=== PATIENT | male | born 1975 | race Caucasian/White ===

== ENCOUNTER 2022-04-07 12:38 | Emergency (ER) | payer BC, SELFPAY ==
[2022-04-07] VITALS (9 sets, daily range): BP systolic 115–144; BP diastolic 67–98; PULSE 67–72; RESP 14–18; TEMP 37; O2SAT 95–98; BMI 33.5
--- NOTE | 2022-04-07 12:28 | ECG_ITS ---
APPROVED REPORT Exam: Resting ECG HR:74 bpm ECG Measurements Heart Rate 74 AXES FL 145 P 73 QRSd 96 QRS 88 QT 389 T 75 QTc [address] ELEVATION, PROBABLY EARLY REPOLARIZATION [ST ELEVATION WITH NORMALLY INFLECTED T-WAVE] BORDERLINE ECG UNCONFIRMED REPORT Electronically signed by : Fareed Brown MD 04/08/2022 21:10:36
--- NOTE | 2022-04-07 12:51 | HMH.EDGENADL ---
ED Disposition Clinical Impression: Muscle cramping Disposition: Home, Self-Care Condition on Discharge: Fair Instructions: Nocturnal Leg Cramps Additional Instructions: Follow-up with your primary care doctor in about 2 to 3 days even if you feel well. Return to the emergency department if you feel worse in any way. Plenty of fluids. Referrals: Magali Pruitt MD [Primary Care Provider] - - Critical Care Critical Care Time: No Attestation: On 04/07/22, the high probability of a clinically significant, sudden or life threatening deterioration of the following system(s) required my full and direct attention, intervention and personal management. The time I documented below is in addition to time spent performing reported procedures but includes the following listed in this critical care notation. Medical Decision Making - Medical Records Medical records reviewed: Yes: I reviewed the patient's medical records. - Ivan Inquiry Pt receiving controlled substance: No Vital Signs: 04/07/22 12:39 04/07/22 13:30 04/07/22 14:00 Temperature 98.6 F Temperature Source Oral Pulse Rate 67 Pulse Rate [Right] 72 Respiratory Rate 16 14 16 Blood Pressure 121/73 142/81 H Blood Pressure [Right Arm] 115/67 Blood Pressure Mean 101 Blood Pressure Mean [Right Arm] 83 Blood Pressure Source [Right Arm] Automatic Cuff Blood Pressure Position [Right Arm] Sitting 02 Sat by Pulse Oximetry 98 98 98 Oxygen Delivery Method Room Air Nasal Cannula Oxygen Flow Rate (LPM) 2 04/07/22 14:30 04/07/22 15:00 04/07/22 15:30 Temperature Temperature Source Pulse Rate Pulse Rate [Right] Respiratory Rate 16 17 18 Blood Pressure 134/77 128/77 144/98 H Blood Pressure [Right Arm] Blood Pressure Mean 96 88 108 Blood Pressure Mean [Right Arm] Blood Pressure Source [Right Arm] Blood Pressure Position [Right Arm] 02 Sat by Pulse Oximetry 98 98 Oxygen Delivery Method Oxygen Flow Rate (LPM) 04/07/22 16:00 04/07/22 16:30 Temperature Temperature Source Pulse Rate 67 67 Pulse Rate [Right] Respiratory Rate 16 16 Blood Pressure 136/84 122/85 Blood Pressure [Right Arm] Blood Pressure Mean 101 93 Blood Pressure Mean [Right Arm] Blood Pressure Source [Right Arm] Blood Pressure Position [Right Arm] 02 Sat by Pulse Oximetry 96 95 Oxygen Delivery Method Oxygen Flow Rate (LPM) - Lab Data Lab results reviewed: Yes: I reviewed the patient's lab results. Lab Results 04/07/22 12:50: WBC 3.8 L, RBC 4.77, Hgb 15.0, Hct 44.8, MCV 93.9, MCH 31.5 H, MCHC 33.5, RDW 12.7, Plt Count 259, MPV 7.8, Neut % (Auto) 48.1, Lymph % (Auto) 40.9, [place] % (Auto) 9.6 H, Eos % (Auto) 1.4, Baso % (Auto) 4.3 H, Neut # (Auto) 1.8, Lymph # (Auto) 1.6, [place] # (Auto) 0.4, Eos # (Auto) 0.1, Baso # (Auto) 0.2 04/07/22 12:50: Magnesium 2.0 04/07/22 12:50: Sodium 139, Potassium 3.7, Chloride 107, Carbon Dioxide 25, Anion Gap 10.7, BUN 16, Creatinine 0.80, Estimated Creat Clear 178, Estimated GFR 104, Est GFR ( Amer) 126, Glucose 108 H, Calcium 9.2, Total Bilirubin 0.5, AST 54, ALT 60, Alkaline Phosphatase 51, Total Protein 6.8, Albumin 4.2, Globulin 2.6, Albumin/Globulin Ratio 1.6 04/07/22 12:50: Troponin I < 0.01 Result diagrams: 04/07/22 12:50 04/07/22 12:50 Orders (Tests/Meds): ED MEDICATIONS Generic Name Dose Route Start Last Admin Trade Name Freq PRN Reason Stop Dose Admin Sodium Chloride 10 ml 04/07/22 12:48 Sodium Chloride 0.9% 10ml Vial IV 05/07/22 12:47 NEEDED PRN to Dilute Lorazepam inj Discontinued Medications Generic Name Dose Route Start Last Admin Trade Name Freq PRN Reason Stop Dose Admin Belladonna Alkaloids 60 ml 04/07/22 14:57 04/07/22 15:01 Gi Cocktail 60ml Udc PO 04/07/22 14:58 60 ml ONCE ONE Administration Iopamidol 100 ml 04/07/22 15:20 04/07/22 15:21 Iopamidol-370 (76%);100ml Bottle IV 04/07/22 15:21 100 ml ONC
--- NOTE | 2022-04-07 13:00 | PC.NURSE ---
at bedside with pt and call light within reach
[2022-04-07 13:04] LABS: Basophils # 0.2 K/mm3 (0-0.2); Basophils % 4.3 % (0.1-2.0); Eosinophils # 0.1 K/mm3 (0.0-0.4); Eosinophils % 1.4 % (0.1-12.0); Hematocrit 44.8 % (42.0-52.0); Lymphocytes # 1.6 K/mm3 (0.7-4.5); Lymphocytes % 40.9 % (10-50); Mean Corpuscular HGB Conc 33.5 g/dL (31.8-35.4); Mean Corpuscular Hemoglobin 31.5 pg (27.0-31.2); Mean Corpuscular Volume 93.9 fl (80-94); Mean Platelet Volume 7.8 fl (7.4-10.4); Monocytes # 0.4 K/mm3 (0.1-1.0); Monocytes % 9.6 % (1.7-9.3); Neutrophils # 1.8 K/mm3 (1.8-7.8); Neutrophils % 48.1 % (37.0-80.0); Platelet Count 259 K/mm3 (142-424); Red Blood Count 4.77 M/mm3 (4.60-6.20); Red Cell Distribution Width 12.7 % (11.5-17.5); White Blood Count 3.8 K/mm3 (4.8-10.8)
[2022-04-07 13:12] LABS: Alanine Aminotransferase 60 U/L (12-78); Albumin Level 4.2 g/dl (3.5-5.0); Albumin/Globulin Ratio 1.6 (1.1-1.8); Alkaline Phosphatase 51 U/L (38-126); Anion Gap 10.7 mEq/L (5-15); Aspartate Amino Transferase 54 U/L (17-59); Bilirubin,Total 0.5 mg/dl (0.2-1.3); Blood Urea Nitrogen 16 mg/dl (9-20); Calcium 9.2 mg/dl (8.4-10.2); Carbon Dioxide 25 mmol/L (22.0-30.0); Chloride 107 mmol/L (98-107); Creatinine Clearance Estimated 178 mL/min (50-200); Estimated Glomerular Filt Rate 104 ml/min (>60); GFR (African American) 126 ML/MIN (>60); Globulin 2.6 g/dL (1.3-3.2); Glucose 108 mg/dl (74-100); Potassium 3.7 mmoL/L (3.5-5.1); Sodium 139 mmol/L (136-145); Total Protein,Serum 6.8 g/dl (6.3-8.2)
--- NOTE | 2022-04-07 14:00 | CT_ITS ---
FINAL REPORT TECHNIQUE: Postcontrast axial images of the chest were performed in a CTA protocol. This study was performed with techniques to keep radiation doses as low as reasonably achievable, (ALARA). Individualized dose reduction technique using automated exposure control or adjustment of mA and/or kV according to the patient's size were employed. CLINICAL HISTORY: Chest pressure with syncope, patient had leg cramps this morning getting out of bed and fell, now his chest hurts. COMPARISON: 04/07/2022 FINDINGS: The heart is normal in size. No adenopathy is identified. No pleural or pericardial effusion is identified. The thoracic aorta is normal in caliber with no focal aneurysm or dissection identified. There is no filling defect to suggest pulmonary embolism. There are mild ground-glass opacities which may represent edema or pneumonia. There is mild atelectasis. The images of the upper abdomen are unremarkable. IMPRESSION: No evidence for PE on this exam. Mild ground-glass opacities which may represent edema or pneumonia. Mild atelectasis. Reviewed, Interpreted and Dictated by Harley Chinchilla III, MD Transcribed by Loida Hanson Authenticated by Harley Chinchilla III, MD on 04/07/2022 04:36:45 PM [facility]
--- NOTE | 2022-04-07 14:01 | PC.NURSE ---
MD at bedside speaking with pt about POC. New orders added at this time
--- NOTE | 2022-04-07 14:10 | PC.NURSE ---
Notified lab and rad of new orders
--- NOTE | 2022-04-07 14:30 | PC.NURSE ---
Rounded on patient at this time. No new needs. at bedside.
[2022-04-07 14:36] LABS: Troponin I < 0.01 ng/ml (0.00-0.034)
--- NOTE | 2022-04-07 14:58 | PC.NURSE ---
1455 pt calls to report chest pain, notified. orders for GI cocktail
--- NOTE | 2022-04-07 15:26 | PC.NURSE ---
PT going to CT
--- NOTE | 2022-04-07 16:23 | PC.NURSE ---
Called rad about CT reads
--- NOTE | 2022-04-07 16:48 | PC.NURSE ---
Went and updated pt and that CT had been read and MD was reviewing and would be in to speak with them.
[2022-04-07 18:13] LABS: Troponin I < 0.01 ng/ml (0.00-0.034)
== END 2022-04-07 17:48 | disposition home or self-care (01) ==
PROVIDERS: Emergency Provider Emergency Medicine; PCP Family Medicine
DX: R25.2 Cramp and spasm (principal); R07.89 Other chest pain; R55 Syncope and collapse
CPT/HCPCS: 36415; 71275; 80053; 83735; 84484; 85025; 93005; 96374; 96375; 96376; 99284; Q9967